=== PATIENT | male | born 1940 | race Caucasian/White ===

== ENCOUNTER 2016-09-01 07:25 | Day surgery (SDC) | payer MEDICARE, BC ==
[2016-09-01] MEDS ORDERED: PROPOFOL 500 MG/50 ML EMU IV ONE (07:28)
[2016-09-01 09:03] VITALS: BP 124/67; PULSE 82; RESP 18; TEMP 96.7; O2SAT 96
== END 2016-09-01 09:23 | disposition home or self-care (01) | DRG 951 ==
LOC: SURG 07:25
PROVIDERS: ATTEND Surgery
DX: Z12.11 Encounter for screening for malignant neoplasm of colon (principal); D12.0 Benign neoplasm of cecum; Z86.010 Personal history of colon polyps; K57.30 Diverticulosis of large intestine without perforation or abscess without bleeding; D12.2 Benign neoplasm of ascending colon; D12.5 Benign neoplasm of sigmoid colon; D12.3 Benign neoplasm of transverse colon
CPT/HCPCS: J2704

== ENCOUNTER 2017-07-23 05:32 | Inpatient (IN) | payer MEDICARE, OTHER ==
[~2017-07-23 05:32] MED LIST: SODIUM CHLORIDE 0.9% FLUSH 10 ML SOL IV PRN
[2017-07-23] MEDS ORDERED: LACTATED RINGERS 1,000 ML IV ONE (06:30)
[2017-07-23] MEDS ORDERED: SCOPOLAMINE 1.5MG PATCH TD SCH (06:30)
[2017-07-23] MEDS ORDERED: SODIUM CHLORIDE 20 ML 20 ML ONE (07:07)
[2017-07-23] MEDS ORDERED: TETRACAINE HCL 1% SOL ONE (07:24)
[2017-07-23] MEDS ORDERED: MIDAZOLAM 2 MG/2 ML SOL ONE ×2 (07:29→09:25)
[2017-07-23] MEDS ORDERED: MORPHINE SULFATE 0.5 MG/ML SOL ONE (07:29)
[2017-07-23] MEDS ORDERED: KETAMINE HYDROCHLORIDE 50 MG/ML SOL ONE (07:29)
[2017-07-23] MEDS ORDERED: LACTATED RINGERS 1,000 ML IV SCH (07:30)
[2017-07-23] MEDS ORDERED: PROPOFOL 500 MG/50 ML EMU IV ONE ×2 (08:44→09:25)
[2017-07-23] MEDS ORDERED: CEFAZOLIN SODIUM 1 GM PDS ONE ×2 (08:44→17:30)
[2017-07-23] MEDS ORDERED: ONDANSETRON HCL 4 MG/2 ML SOL ONE (08:56)
[2017-07-23] MEDS ORDERED: DEXAMETHASONE 20 MG/5 ML (4 MG/ML SOL) ONE (08:56)
[2017-07-23] MEDS ORDERED: METOCLOPRAMIDE HYDROCHLORIDE 5 MG/ML SOL ONE (08:56)
[2017-07-23] MEDS: TRANEXAMIC ACID 100 MG/ML SOL ONE ×2 (09:35→10:30)
[2017-07-23] MEDS: BUPIVACAINE LIPOSOME 20 ML SUS ONE ×3 (09:38→10:42)
[2017-07-23] MEDS ORDERED: MAGNESIUM HYDROXIDE 30 ML SUS PO PRN (10:47)
[2017-07-23] MEDS ORDERED: DIPHENHYDRAMINE 25 MG CAP PO PRN (10:47)
[2017-07-23] MEDS ORDERED: ALUMINUM/MAGNESIUM 30 ML SUS PO PRN (10:47)
[2017-07-23] MEDS ORDERED: MORPHINE SULFATE 10 MG/ML SOL IV PRN (10:47)
[2017-07-23] MEDS ORDERED: ONDANSETRON HCL 4 MG/2 ML SOL IV PRN (10:47)
[2017-07-23] MEDS ORDERED: ONDANSETRON 4 MG ODT BU PRN (10:47)
[2017-07-23] MEDS ORDERED: DIAZEPAM 5 MG TAB PO PRN (10:47)
[2017-07-23] MEDS ORDERED: SODIUM CHLORIDE 0.9% 500 ML 500 ML IV PRN (10:47)
[2017-07-23] MEDS ORDERED: FLEET ENEMA PR PRN (10:47)
[2017-07-23] MEDS ORDERED: BISACODYL 10 MG SUP PR PRN (10:47)
[2017-07-23] MEDS ORDERED: PROPOFOL 10 MG/ML EMU IV ONE (11:11)
[2017-07-23] MEDS ORDERED: BUPIVACAINE HCL 0.25% MPF 10 ML SOL INFIL ONE (11:23)
[2017-07-23] MEDS ORDERED: GLYCOPYRROLATE 0.2 MG/ML SOL ONE (11:40)
[2017-07-23] MEDS ORDERED: KETOROLAC TROMETHAMINE 30 MG/ML SOL ONE (11:52)
[2017-07-23] MEDS ORDERED: FENTANYL 100MCG/2ML SOL ONE (12:13)
[2017-07-23] MEDS: DEXTROSE/SALINE 0.45% 1,000 ML IV SCH ×2 (13:16→22:42)
[2017-07-23] MEDS: SODIUM CHLORIDE 0.9% FLUSH 10 ML SOL IV SCH ×2 (13:19→18:16)
[2017-07-23] MEDS: ACETAMINOPHEN 500 MG 500 MG TAB PO SCH ×3 (14:31→21:39)
[2017-07-23] MEDS ORDERED: CEFAZOLIN (PREMIX) 1 GM 1 GM/50 ML SOL IV SCH (16:30)
[2017-07-23] MEDS ORDERED: CEFAZOLIN SODIUM 1 GM PDS 1 GM in SODIUM CHLORIDE 0.9% 100 ML 100 ML IV SCH (16:45)
[2017-07-23] MEDS ORDERED: SODIUM CHLORIDE 0.9% 100 ML 100 ML IV ONE (17:30)
[2017-07-23] MEDS: SIMVASTATIN 20 MG TAB PO SCH (20:22)
[2017-07-23] MEDS: SENNOSIDES A AND B 8.6 MG TAB PO SCH (20:22)
[2017-07-23] MEDS ORDERED: METFORMIN HYDROCHLORIDE 500 MG TAB ONE (21:24)
[2017-07-24] MEDS ORDERED: CEFAZOLIN SODIUM 1 GM PDS 1 GM in SODIUM CHLORIDE 0.9% 100 ML 100 ML IV SCH (00:45)
[2017-07-24] MEDS ORDERED: SODIUM CHLORIDE 0.9% 100 ML 100 ML IV ONE (01:01)
[2017-07-24] MEDS ORDERED: CEFAZOLIN SODIUM 1 GM PDS ONE (01:01)
[2017-07-24] MEDS: OXYCODONE HYDROCHLORIDE 5 MG TAB PO PRN ×6 (01:57→20:03)
[2017-07-24] MEDS: SODIUM CHLORIDE 0.9% FLUSH 10 ML SOL IV SCH ×4 (01:57→19:08)
[2017-07-24] MEDS: DEXTROSE/SALINE 0.45% 1,000 ML IV SCH (06:51)
[2017-07-24 07:14] LABS: MEAN CORPUSCULAR HGB CONC 36.4 gm/dl (32.0-36.0)
[2017-07-24] MEDS: CHOLECALCIFEROL 1,000 IU TAB PO SCH (08:14)
[2017-07-24] MEDS: ACETAMINOPHEN 500 MG 500 MG TAB PO SCH ×4 (08:14→20:05)
[2017-07-24] MEDS: RIVAROXABAN 10 MG TAB PO SCH (08:14)
[2017-07-24] MEDS ORDERED: LOSARTAN POTASSIUM 50 MG TAB PO SCH (09:00)
[2017-07-24] MEDS: METFORMIN HYDROCHLORIDE 500 MG TAB PO SCH ×2 (09:55→20:07)
[2017-07-24] MEDS: SENNOSIDES A AND B 8.6 MG TAB PO SCH (20:06)
[2017-07-24] MEDS: SIMVASTATIN 20 MG TAB PO SCH (20:06)
[2017-07-24] MEDS ORDERED: METFORMIN HYDROCHLORIDE 500 MG TAB PO SCH ×3 (21:00)
[2017-07-24] MEDS: TEMAZEPAM 15MG 15 MG CAP PO PRN (22:08)
[2017-07-25] MEDS: OXYCODONE HYDROCHLORIDE 5 MG TAB PO PRN ×6 (01:09→20:56)
[2017-07-25] MEDS: SODIUM CHLORIDE 0.9% FLUSH 10 ML SOL IV SCH ×3 (03:00→20:54)
[2017-07-25] MEDS: DEXTROSE/SALINE 0.45% 1,000 ML IV SCH (03:39)
[2017-07-25 07:57] LABS: MEAN CORPUSCULAR HGB CONC 36.2 gm/dl (32.0-36.0)
[2017-07-25] MEDS: RIVAROXABAN 10 MG TAB PO SCH (08:49)
[2017-07-25] MEDS: ACETAMINOPHEN 500 MG 500 MG TAB PO SCH ×4 (08:49→20:57)
[2017-07-25] MEDS: CHOLECALCIFEROL 1,000 IU TAB PO SCH (08:49)
[2017-07-25] MEDS: METFORMIN HYDROCHLORIDE 500 MG TAB PO SCH ×2 (09:51→17:44)
[2017-07-25] MEDS: LOSARTAN POTASSIUM 50 MG TAB PO SCH (09:52)
[2017-07-25] MEDS ORDERED: SODIUM CHLORIDE 0.9% 1000ML 1,000 ML IV ONE (15:20)
[2017-07-25 16:40] LABS: POTASSIUM 4.1 mMol/L (3.5-5.1)
[2017-07-25] MEDS: SODIUM CHLORIDE 0.9% 1000ML 1,000 ML IV SCH (20:54)
[2017-07-25] MEDS: TEMAZEPAM 15MG 15 MG CAP PO PRN (20:56)
[2017-07-25] MEDS: SENNOSIDES A AND B 8.6 MG TAB PO SCH (20:57)
[2017-07-25] MEDS: SIMVASTATIN 20 MG TAB PO SCH (20:58)
[2017-07-25] MEDS: METOPROLOL TARTRATE 25 MG TAB PO SCH (20:59)
[2017-07-26] MEDS: OXYCODONE HYDROCHLORIDE 5 MG TAB PO PRN ×6 (00:56→23:28)
[2017-07-26] MEDS: SODIUM CHLORIDE 0.9% FLUSH 10 ML SOL IV SCH ×3 (03:27→19:25)
[2017-07-26] MEDS: SODIUM CHLORIDE 0.9% 1000ML 1,000 ML IV SCH ×4 (04:10→14:45)
[2017-07-26 07:37] LABS: CALCIUM 7.6 mg/dl (8.5-10.1); POTASSIUM 3.7 mMol/L (3.5-5.1)
[2017-07-26] MEDS: METFORMIN HYDROCHLORIDE 500 MG TAB PO SCH ×2 (08:26→17:47)
[2017-07-26] MEDS: RIVAROXABAN 10 MG TAB PO SCH (08:26)
[2017-07-26] MEDS: ACETAMINOPHEN 500 MG 500 MG TAB PO SCH ×4 (08:26→20:52)
[2017-07-26] MEDS: CHOLECALCIFEROL 1,000 IU TAB PO SCH (08:27)
[2017-07-26] MEDS: METOPROLOL TARTRATE 25 MG TAB PO SCH ×2 (08:29→20:53)
[2017-07-26] MEDS: LOSARTAN POTASSIUM 50 MG TAB PO SCH (08:29)
[2017-07-26] MEDS ORDERED: FUROSEMIDE 20mg SOL IV ONE (14:00)
[2017-07-26] MEDS: TEMAZEPAM 15MG 15 MG CAP PO PRN (20:52)
[2017-07-26] MEDS: SIMVASTATIN 20 MG TAB PO SCH (20:53)
[2017-07-26] MEDS: SENNOSIDES A AND B 8.6 MG TAB PO SCH (20:53)
[2017-07-27] MEDS: OXYCODONE HYDROCHLORIDE 5 MG TAB PO PRN ×4 (03:31→14:38)
[2017-07-27] MEDS: SODIUM CHLORIDE 0.9% FLUSH 10 ML SOL IV SCH (04:04)
[2017-07-27] MEDS: RIVAROXABAN 10 MG TAB PO SCH (09:21)
[2017-07-27] MEDS: METFORMIN HYDROCHLORIDE 500 MG TAB PO SCH (09:22)
[2017-07-27] MEDS: ACETAMINOPHEN 500 MG 500 MG TAB PO SCH ×2 (09:22→13:02)
[2017-07-27] MEDS: CHOLECALCIFEROL 1,000 IU TAB PO SCH (09:23)
[2017-07-27] MEDS: METOPROLOL TARTRATE 25 MG TAB PO SCH (09:44)
[2017-07-27] MEDS: LOSARTAN POTASSIUM 50 MG TAB PO SCH (09:45)
[2017-07-27 11:33] VITALS: BP 114/70; PULSE 72; RESP 18; TEMP 98.4
[2017-07-27 15:01] VITALS: O2SAT 98
== END 2017-07-27 14:25 | disposition swing bed (61) | DRG 462 ==
LOC: ACUTE CARE 05:32
PROVIDERS: ADMIT Orthopaedic Surgery; ATTEND Orthopaedic Surgery
PROC: 0SRC0J9 Replacement of Right Knee Joint with Synthetic Substitute, Cemented, Open Approach (ICD-10-PCS; 2017-07-23)
PROC: F02Z1ZZ Dressing Assessment (ICD-10-PCS; 2017-07-23)
PROC: F02Z3ZZ Grooming/Personal Hygiene Assessment (ICD-10-PCS; 2017-07-23)
PROC: F01ZDFZ Gait and/or Balance Assessment using Assistive, Adaptive, Supportive or Protective Equipment (ICD-10-PCS; 2017-07-23)
PROC: F01ZBZZ Bed Mobility Assessment (ICD-10-PCS; 2017-07-23)
PROC: F01ZCZZ Transfer Assessment (ICD-10-PCS; 2017-07-23)
PROC: 0SRD0J9 Replacement of Left Knee Joint with Synthetic Substitute, Cemented, Open Approach (ICD-10-PCS; principal; 2017-07-23 08:00)
PROC: 30233N1 Transfusion of Nonautologous Red Blood Cells into Peripheral Vein, Percutaneous Approach (ICD-10-PCS; 2017-07-26)
DX: M17.0 Bilateral primary osteoarthritis of knee (principal); E11.9 Type 2 diabetes mellitus without complications; D64.9 Anemia, unspecified; I10 Essential (primary) hypertension; R00.0 Tachycardia, unspecified; R55 Syncope and collapse; Z96.653 Presence of artificial knee joint, bilateral
CPT/HCPCS: 36415; 73560; 80048; 82962; 85018; 85027; 93005; 93012; 94150; 99070; J0690; J1100; J1885; J1940; J2250; J2274; J2405; J2765; J3010; J7643; P9016; A6232; A6402; A9270-GY; J2704; J3490; Q3014

== ENCOUNTER 2017-07-27 08:46 | Inpatient (IN) | payer MEDICARE, OTHER ==
[2017-07-27] MEDS ORDERED: DIAZEPAM 5 MG TAB PO PRN (18:29)
[2017-07-27] MEDS: METFORMIN HYDROCHLORIDE 500 MG TAB PO SCH (18:35)
[2017-07-27] MEDS: ACETAMINOPHEN 500 MG 500 MG TAB PO SCH ×2 (18:35→21:35)
[2017-07-27] MEDS: OXYCODONE HYDROCHLORIDE 5 MG TAB PO PRN (19:50)
[2017-07-27] MEDS: SIMVASTATIN 20 MG TAB PO SCH (21:35)
[2017-07-27] MEDS: SENNOSIDES A AND B 8.6 MG TAB PO SCH (21:35)
[2017-07-27] MEDS: TEMAZEPAM 15MG 15 MG CAP PO PRN (21:38)
[2017-07-28] MEDS: OXYCODONE HYDROCHLORIDE 5 MG TAB PO PRN ×6 (00:20→20:50)
[2017-07-28] MEDS: ACETAMINOPHEN 500 MG 500 MG TAB PO SCH ×4 (08:28→20:49)
[2017-07-28] MEDS: METFORMIN HYDROCHLORIDE 500 MG TAB PO SCH ×2 (08:28→17:45)
[2017-07-28] MEDS: RIVAROXABAN 10 MG TAB PO SCH (08:29)
[2017-07-28] MEDS: CHOLECALCIFEROL 1,000 IU TAB PO SCH (08:29)
[2017-07-28] MEDS: ASPIRIN 81 MG CHEWABLE CTB PO SCH (08:35)
[2017-07-28] MEDS: METOPROLOL TARTRATE 50 MG TAB PO SCH (09:54)
[2017-07-28] MEDS: SIMVASTATIN 20 MG TAB PO SCH (20:49)
[2017-07-28] MEDS: SENNOSIDES A AND B 8.6 MG TAB PO SCH (20:49)
[2017-07-28] MEDS: TEMAZEPAM 15MG 15 MG CAP PO PRN (22:17)
[2017-07-29] MEDS: OXYCODONE HYDROCHLORIDE 5 MG TAB PO PRN ×6 (02:27→23:40)
[2017-07-29] MEDS: ASPIRIN 81 MG CHEWABLE CTB PO SCH (09:12)
[2017-07-29] MEDS: METOPROLOL TARTRATE 50 MG TAB PO SCH (09:12)
[2017-07-29] MEDS: METFORMIN HYDROCHLORIDE 500 MG TAB PO SCH ×2 (09:12→17:42)
[2017-07-29] MEDS: ACETAMINOPHEN 500 MG 500 MG TAB PO SCH ×4 (09:13→20:49)
[2017-07-29] MEDS: CHOLECALCIFEROL 1,000 IU TAB PO SCH (09:14)
[2017-07-29] MEDS: RIVAROXABAN 10 MG TAB PO SCH (09:14)
[2017-07-29] MEDS: SENNOSIDES A AND B 8.6 MG TAB PO SCH (20:49)
[2017-07-29] MEDS: SIMVASTATIN 20 MG TAB PO SCH (20:50)
[2017-07-30] MEDS: OXYCODONE HYDROCHLORIDE 5 MG TAB PO PRN ×5 (03:56→21:32)
[2017-07-30] MEDS: ASPIRIN 81 MG CHEWABLE CTB PO SCH (08:44)
[2017-07-30] MEDS: METFORMIN HYDROCHLORIDE 500 MG TAB PO SCH ×2 (08:44→17:31)
[2017-07-30] MEDS: METOPROLOL TARTRATE 50 MG TAB PO SCH (08:44)
[2017-07-30] MEDS: ACETAMINOPHEN 500 MG 500 MG TAB PO SCH ×4 (08:45→20:21)
[2017-07-30] MEDS: CHOLECALCIFEROL 1,000 IU TAB PO SCH (08:45)
[2017-07-30] MEDS: RIVAROXABAN 10 MG TAB PO SCH (08:46)
[2017-07-30] MEDS: SIMVASTATIN 20 MG TAB PO SCH (20:21)
[2017-07-30] MEDS: SENNOSIDES A AND B 8.6 MG TAB PO SCH (20:21)
[2017-07-31] MEDS: OXYCODONE HYDROCHLORIDE 5 MG TAB PO PRN ×5 (00:40→22:46)
[2017-07-31] MEDS: RIVAROXABAN 10 MG TAB PO SCH (08:38)
[2017-07-31] MEDS: METFORMIN HYDROCHLORIDE 500 MG TAB PO SCH ×2 (08:38→17:21)
[2017-07-31] MEDS: ACETAMINOPHEN 500 MG 500 MG TAB PO SCH ×4 (08:38→21:35)
[2017-07-31] MEDS: CHOLECALCIFEROL 1,000 IU TAB PO SCH (08:40)
[2017-07-31] MEDS: METOPROLOL TARTRATE 50 MG TAB PO SCH (08:40)
[2017-07-31] MEDS: SENNOSIDES A AND B 8.6 MG TAB PO SCH (21:32)
[2017-07-31] MEDS: SIMVASTATIN 20 MG TAB PO SCH (21:35)
[2017-08-01] MEDS: OXYCODONE HYDROCHLORIDE 5 MG TAB PO PRN ×3 (02:02→20:46)
[2017-08-01] MEDS: RIVAROXABAN 10 MG TAB PO SCH (08:26)
[2017-08-01] MEDS: CHOLECALCIFEROL 1,000 IU TAB PO SCH (08:26)
[2017-08-01] MEDS: METFORMIN HYDROCHLORIDE 500 MG TAB PO SCH ×2 (08:26→17:32)
[2017-08-01] MEDS: ACETAMINOPHEN 500 MG 500 MG TAB PO SCH ×4 (08:26→20:45)
[2017-08-01] MEDS: METOPROLOL TARTRATE 50 MG TAB PO SCH (08:26)
[2017-08-01 10:57] VITALS: RESP 18
[2017-08-01] MEDS: SENNOSIDES A AND B 8.6 MG TAB PO SCH (20:46)
[2017-08-01] MEDS: SIMVASTATIN 20 MG TAB PO SCH (20:46)
[2017-08-02] MEDS: OXYCODONE HYDROCHLORIDE 5 MG TAB PO PRN ×5 (00:57→13:28)
[2017-08-02] MEDS: METFORMIN HYDROCHLORIDE 500 MG TAB PO SCH (08:54)
[2017-08-02] MEDS: ACETAMINOPHEN 500 MG 500 MG TAB PO SCH ×2 (08:55→13:26)
[2017-08-02] MEDS: METOPROLOL TARTRATE 50 MG TAB PO SCH (08:55)
[2017-08-02] MEDS: RIVAROXABAN 10 MG TAB PO SCH (08:55)
[2017-08-02] MEDS: CHOLECALCIFEROL 1,000 IU TAB PO SCH (08:57)
[2017-08-02 12:49] VITALS: BP 133/62; TEMP 98.2; O2SAT 93
[2017-08-02 13:30] VITALS: PULSE 77
== END 2017-08-02 13:45 | disposition home or self-care (01) | DRG 561 ==
LOC: ACUTE CARE 14:30
PROVIDERS: ADMIT Family Medicine; ATTEND Family Medicine
PROC: F01L5ZZ Range of Motion and Joint Integrity Assessment of Musculoskeletal System - Lower Back / Lower Extremity (ICD-10-PCS; 2017-07-23)
PROC: F01L0ZZ Muscle Performance Assessment of Musculoskeletal System - Lower Back / Lower Extremity (ICD-10-PCS; 2017-07-23)
PROC: F01K0ZZ Muscle Performance Assessment of Musculoskeletal System - Upper Back / Upper Extremity (ICD-10-PCS; 2017-07-23)
PROC: F02Z1ZZ Dressing Assessment (ICD-10-PCS; principal; 2017-07-28)
PROC: F02Z0ZZ Bathing/Showering Assessment (ICD-10-PCS; 2017-07-28)
PROC: F02Z3ZZ Grooming/Personal Hygiene Assessment (ICD-10-PCS; 2017-07-28)
DX: Z47.1 Aftercare following joint replacement surgery (principal); E11.9 Type 2 diabetes mellitus without complications; Z96.653 Presence of artificial knee joint, bilateral; I10 Essential (primary) hypertension; Z79.84 Long term (current) use of oral hypoglycemic drugs; G47.33 Obstructive sleep apnea (adult) (pediatric)
CPT/HCPCS: 82962; 94762; A9270-GY

== ENCOUNTER 2017-09-03 15:23 | Outpatient (CLI) | payer MEDICARE, OTHER ==
[2017-08-02 12:49] VITALS: O2SAT 93
== END 2017-09-03 15:24 | disposition home or self-care (01) | DRG 566 ==
LOC: RAD 15:23
PROVIDERS: ATTEND Orthopaedic Surgery
DX: Z96.653 Presence of artificial knee joint, bilateral (principal)
CPT/HCPCS: 73562

== ENCOUNTER 2018-08-12 12:23 | Outpatient (CLI) | payer MEDICARE, OTHER ==
[2017-08-02 12:49] VITALS: O2SAT 93
== END 2018-08-12 12:24 | disposition home or self-care (01) | DRG 561 ==
LOC: CONVCARE 12:23
PROVIDERS: ATTEND Orthopaedic Surgery
DX: Z47.1 Aftercare following joint replacement surgery (principal); Z98.890 Other specified postprocedural states
CPT/HCPCS: 73560; 73565